=== PATIENT | female | born 1985 | race Caucasian/White ===

== ENCOUNTER 2016-10-11 23:47 | Emergency (ER) | payer BC ==
[~2016-10-11] VITALS: Ht 167.6 cm; Wt 57.5 kg
[2016-10-12 00:07] VITALS: Ht 167.6 cm; Wt 57.5 kg
[2016-10-12] MEDS ORDERED: morphine 4 MG/ML VIAL IV STA ×2 (00:28→01:53)
[2016-10-12] MEDS ORDERED: ONDANSETRON 4 MG INJ IV STA ×2 (00:28→01:53)
[2016-10-12] MEDS ORDERED: SOD CHLORIDE 0.9% 1,000 ML IV STA (00:28)
[2016-10-12 01:41] LABS: ADD SCAN DIFF NO
[2016-10-12 01:49] LABS: ADD UMIC YES; UR BILIRUBIN (Dip) NEGATIVE (NEGATIVE); UR BLOOD (Dip) 2+ (NEGATIVE); UR CLARITY CLEAR (CLEAR); UR COLOR LT. YELLOW (YELLOW); UR GLUCOSE (Dip) NEGATIVE (NEGATIVE); UR KETONES (Dip) NEGATIVE (NEGATIVE); UR LEUKOCYTE ESTERASE (Dip) NEGATIVE (NEGATIVE); UR NITRITE (Dip) NEGATIVE (NEGATIVE); UR TOTAL PROTEIN (Dip) NEGATIVE (NEGATIVE); UR UROBILINOGEN (Dip) 0.2 E.U./dL (0.1-1.0)
--- NOTE | 2016-10-12 01:50 | RADRPT ---
PROCEDURE: CT Abdomen and pelvis without contrast. CLINICAL INDICATION: Abdominal pain. TECHNIQUE: CT scan of the abdomen and pelvis was performed on a multi-detector high-resolution CT scanner. Contiguous axial images were obtained from the lung bases to the ischial tuberosities wit hout intravenous contrast. Coronal and sagittal reformatted images were also obtained. Images were reviewed on the PACS workstation. One or more of the following dose reduction techniques were used: - Automated exposure control. - Adjustment of the mA and/or kV according to patient size. - Use of iterative reconstruction technique. Exam CTD/vol = 6.83 mGy. Total exam DLP = 397.61 mGy-cm. COMPARISON: None. FINDINGS: Evaluation of the lung bases demonstrates no pleural or parenchymal disease. Abdomen: The liver is normal in size. There is no focal mass or dilatation of the biliary tree. T he gallbladder is not distended. The spleen, pancreas and bilateral adrenal glands are within yesika l limits. Bilateral kidneys are normal in size with no contour deforming mass identified. There is no radiopaque renal calculus identified. There is moderate right-sided hydronephrosis. There is n o retroperitoneal adenopathy. The abdominal aorta is of normal caliber. There is no abnormal bowel wall thickening or distension. There is no bowel obstruction or free air . A normal appendix is identified. There is no diverticulosis or diverticulitis. There is no asci jennifer. Pelvis: The bladder is unremarkable. The uterus and adnexa are within normal limits. There is a 3 mm calculus at the right ureterovesicular junction. There is no significant pelvic adenopathy or f ree fluid. Evaluation of the osseous structures demonstrates no suspicious lytic or blastic lesion. IMPRESSION: Right ureterovesicular junction 3 mm calculus with moderate right-sided hydronephrosis. .Jenaro Fairchild MD, MD Date Time Electronically viewed and signed by .Jenaro Fairchild MD, MD on 10/12/2016 01:50 .T/
[2016-10-12] MEDS ORDERED: KETOROLAC 30 MG INJ IV STA (01:54)
--- NOTE | 2016-10-12 01:57 | ERD ---
ER Documentation Chief Complaint Date/Time DATE: 10/12/16 TIME: 01:55 Chief Complaint right lower abd pain x 1 hour HPI Otherwise healthy 31-year-old female presents emergency department complaining of sudden onset right lower abdominal and right flank pain which occurred 1 hour prior to arrival to the emergency department. Patient notes associated nausea and vomiting. Patient currently rates her pain at a sharp 7 out of 10. She attempted to treat her symptoms with Motrin at home with only mild relief. She also notes associated fever and chills since the onset. She denies any headache, diarrhea, cough, chest pain, or shortness of breath. She notes 2 prior C-sections. ROS All systems reviewed and are negative except as per history of present illness. Medications Home Meds Active Scripts Ondansetron (Ondansetron Odt) 4 Mg Tab.rapdis, 4 MG PO Q6H Y for NAUSEA AND/OR VOMITING, #20 TAB Prov:ARTI KHOURY PA-C 10/12/16 Hydrocodone/Acetaminophen ([place] 5-325 Tablet) 1 Each Tablet, 1 TAB PO Q6H Y for PAIN, #14 TAB Prov:ARTI KHOURY PA-C 10/12/16 Naproxen* (Naprosyn*) 500 Mg Tablet, 500 MG PO BID Y for PAIN AND/OR INFLAMMATION, #30 TAB Prov:ARTI KHOURY PA-C 10/12/16 Tamsulosin Hcl* (Flomax*) 0.4 Mg Cap.er.24h, 0.4 MG PO BID, #30 CAP Prov:ARTI KHOURY PA-C 10/12/16 Allergies Allergies: Coded Allergies: No Known Drug Allergies (Verified Allergy, Unknown, 10/12/16) PMhx/Soc Medical and Surgical Hx: pt denies Medical Hx, pt denies Surgical Hx History of Surgery: No Anesthesia Reaction: No Hx Neurological Disorder: No Hx Respiratory Disorders: No Hx Cardiac Disorders: No Hx Psychiatric Problems: No Hx Miscellaneous Medical Probl: No Hx Alcohol Use: No Hx Substance Use: No Hx Tobacco Use: No Smoking Status: Never smoker Physical Exam Vitals Vital Signs Date Time Temp Pulse Resp B/P Pulse Ox O2 Delivery O2 Flow Rate FiO2 10/12/16 02:58 97.7 75 116/58 100 Room Air 10/12/16 00:07 98.3 95 20 99 Physical Exam Const: Well-developed, well-nourished, in moderate distress. Head: Atraumatic Eyes: Normal Conjunctiva ENT: Normal External Ears, Nose and Mouth. Neck: Full range of motion..~ No meningismus. Resp: Clear to auscultation bilaterally Cardio: Regular rate and rhythm, no murmurs Abd: Soft, tenderness to palpation of the right lower quadrant, mild rebound tenderness, no peritoneal signs non distended. Normal bowel sounds Skin: No petechiae or rashes Back: Right-sided flank tenderness, no midline Ext: No cyanosis, or edema Neur: Awake and alert Psych: Normal Mood and Affect Result Diagram: 10/12/16 0125 10/12/16 0125 Results 24 hrs Laboratory Tests Test 10/12/16 01:05 10/12/16 01:25 Urine Color LT. YELLOW Urine Clarity CLEAR Urine pH 8.5 Urine Specific [place] 1.015 Urine Ketones NEGATIVE Urine Nitrite NEGATIVE Urine Bilirubin NEGATIVE Urine Urobilinogen 0.2 E.U./dL Urine Leukocyte Esterase NEGATIVE Urine Microscopic RBC 25-50/HPF Urine Microscopic WBC 0-2/HPF Urine Squamous Epithelial Cells FEW Urine Hemoglobin 2+ Urine Glucose NEGATIVE% Urine Total Protein NEGATIVE White Blood Count 9.110^3/ul Red Blood Count 4.5810^6/ul Hemoglobin 13.2g/dl Hematocrit 38.2% Mean Corpuscular Volume 83.4fl Mean Corpuscular Hemoglobin 28.8pg Mean Corpuscular Hemoglobin Concent 34.6g/dl Red Cell Distribution Width 12.6% Platelet Count 73257^3/UL Mean Platelet Volume 10.7fl Neutrophils % 64.1% Lymphocytes % 25.5% Monocytes % 7.3% Eosinophils % 2.5% Basophils % 0.4% Nucleated Red Blood Cells % 0.0/100WBC Neutrophils # 5.810^3/ul Lymphocytes # 2.310^3/ul Monocytes # 0.710^3/ul Eosinophils # 0.210^3/ul Basophils # 0.010^3/ul Nucleated Red Blood Cells # 0.010^3/ul Sodium Level 143mmol/L Potassium Level 3.6mmol/L Chloride Level 104mmol/L Carbon Dioxide Level 24mmol/L Anion Gap 19 Blood Urea Nitrogen 16mg/dl Creatinine 0.79mg/dl Glucose Level 115mg/dl Calcium Level 10.1mg/dl Total Bilirubin 0.3mg/dl Direct Bilirubin 0.00mg/dl Indirect Bilirubin 0.3mg/dl Aspartate Amino Transf (AST/SGOT) 20IU/L Alanine Aminotransferase (ALT/SGPT) 26IU/L Alkaline Phosphatase 86IU/L Total Protein 7.8g/dl Albumin 5.0g/dl Globulin 2.80g/dl Albumin/Globulin Ratio 1.78 Lipase 170U/L Serum HCG, Qualitative NEGATIVE Current Medications Medications (Trade) Dose Ordered Sig/Chang Route PRN Reason Start Time Stop Time Status Last Admin Dose Admin Sodium Chloride (NS) 1,000 ml @ 1,000 mls/hr Q1H STAT IV 10/12/16 00:28 10/12/16 01:27 DC 10/12/16 01:37 Morphine Sulfate (morphine) 4 mg ONCE STAT IV 10/12/16 00:28 10/12/16 00:32 DC 10/12/16 01:38 Ondansetron HCl (Zofran Inj) 4 mg ONCE STAT IV 10/12/16 00:28 10/12/16 00:32 DC 10/12/16 01:37 Morphine Sulfate (morphine) 4 mg ONCE STAT IV 10/12/16 01:53 10/12/16 01:54 DC 10/12/16 02:13 Ondansetron HCl (Zofran Inj) 4 mg ONCE STAT IV 10/12/16 01:53 10/12/16 01:54 DC 10/12/16 02:13 Ketorolac Tromethamine (Toradol) 30 mg ONCE STAT IV 10/12/16 01:54 10/12/16 01:55 DC 10/12/16 02:14 Procedures/MDM PROCEDURE: CT Abdomen and pelvis without contrast. CLINICAL INDICATION: Abdominal pain. TECHNIQUE: CT scan of the abdomen and pelvis was performed on a multi- detector high-resolution CT scanner. Contiguous axial images were obtained from the lung bases to the ischial tuberosities without intravenous contrast. Coronal and sagittal reformatted images were also obtained. Images were reviewed on the PACS workstation. One or more of the following dose reduction techniques were used: - Automated exposure control. - Adjustment of the mA and/or kV according to patient size. - Use of iterative reconstruction technique. Exam CTD/vol = 6.83 mGy. Total exam DLP = 397.61 mGy-cm. COMPARISON: None. FINDINGS: Evaluation of the lung bases demonstrates no pleural or parenchymal disease. Abdomen: The liver is normal in size. There is no focal mass or dilatation of the biliary tree. The gallbladder is not distended. The spleen, pancreas and bilateral adrenal glands are within normal limits. Bilateral kidneys are normal in size with no contour deforming mass identified. There is no radiopaque renal calculus identified. There is moderate right-sided hydronephrosis. There is no retroperitoneal adenopathy. The abdominal aorta is of normal caliber. There is no abnormal bowel wall thickening or distension. There is no bowel obstruction or free air. A normal appendix is identified. There is no diverticulosis or diverticulitis. There is no ascites. Pelvis: The bladder is unremarkable. The uterus and adnexa are within normal limits. There is a 3 mm calculus at the right ureterovesicular junction. There is no significant pelvic adenopathy or free fluid. Evaluation of the osseous structures demonstrates no suspicious lytic or blastic lesion. IMPRESSION: Right ureterovesicular junction 3 mm calculus with moderate right-sided hydronephrosis. .Jenaro Fairchild MD, MD Date Time Electronically viewed and signed by .Jenaro Fairchild MD, on 10/12/2016 01:50 .T/ CC: ARTI KHOURY PA-C This is a an otherwise healthy 31-year-old female who presents with sudden onset sharp right sided abdominal and flank pain 1 hour. Vital signs were reviewed. Patient is afebrile. Patient is not hypoxic. Abdominal exam with right lower quadrant and right flank tenderness to palpation. CBC showed no evidence of systemic infection or severe anemia. CMP showed no evidence of electrolyte abnormalities, severe acidosis, alkalosis , renal failure, or liver disease. Lipase showed no evidence of acute pancreatitis. UA showed 2+ hemoglobin but no evidence of acute bacteremia, or nitrites Urine test was negative. Abdominal CT with evidence of a right ureterovesicular junction 3 mm calculus with moderate right-sided hydronephrosis. No evidence of acute appendicitis. Patient received fluids, Toradol, and morphine while in the emergency department and reports improvement of symptoms. At this time low suspicion for acute cholecystitis, pancreatitis, appendicitis, tubo-ovarian abscess, ectopic . Patient will be discharged home with pain medication and Flomax. Based on patient's history of present illness and physical examination the decision was made to discharge. The patient was re-evaluated after ED treatment and stabilizing measures, and symptoms have improved. There is no evidence of life threatening injuries or illnesses at this time. On re-examination, patient resting in no distress, stable vital signs, reports feeling better and safe for discharge with outpatient follow up with PMD in 1-2 days. Patient given return precautions. Departure Diagnosis: Primary Impression: Abdominal pain Abdominal location: right lower quadrant Qualified Code: R10.31 - Right lower quadrant abdominal pain Additional Impressions: Renal calculi Nausea & vomiting Vomiting type: unspecified Vomiting Intractability: unspecified Qualified Code: R11.2 - Nausea and vomiting, intractability of vomiting not specified, unspecified vomiting type ARTI KHOURY PA-C Oct 12, 2016 01:57
[2016-10-12 02:01] LABS: UR SQUAMOUS EPITHELIAL CELL FEW; URINE RBCS 25-50 /HPF (0)
[2016-10-12 02:03] LABS: ALBUMIN/GLOBULIN RATIO 1.78; BILIRUBIN,INDIRECT 0.3 mg/dl (0-1.1); BILIRUBIN,TOTAL 0.3 mg/dl (0.2-1.3); CALCIUM 10.1 mg/dl (8.4-10.2); CREATININE 0.79 mg/dl (0.44-1.00); POTASSIUM 3.6 mmol/L (3.5-5.1); TOTAL PROTEIN 7.8 g/dl (6.1-8.1)
[2016-10-12 02:33] LABS: BASOPHILS % 0.4 % (0.0-2.0); EOSINOPHILS # 0.2 10^3/ul (0.0-0.5); EOSINOPHILS % 2.5 % (0.0-7.0); HEMATOCRIT 38.2 % (37.0-47.0); HEMOGLOBIN 13.2 g/dl (12.0-16.0); LYMPHOCYTES # 2.3 10^3/ul (0.8-2.9); LYMPHOCYTES % 25.5 % (15.0-51.0); MEAN CORPUSCULAR HEMOGLOBIN 28.8 pg (29.0-33.0); MEAN CORPUSCULAR HGB CONC 34.6 g/dl (32.0-37.0); MEAN CORPUSCULAR VOLUME 83.4 fl (82.0-101.0); MEAN PLATELET VOLUME 10.7 fl (7.4-10.4); MONOCYTE # 0.7 10^3/ul (0.3-0.9); MONOCYTES % 7.3 % (0.0-11.0); NEUTROPHIL # 5.8 10^3/ul (1.6-7.5); NEUTROPHILS % 64.1 % (39.0-77.0); PLATELET COUNT 324 10^3/UL (140-415); RED BLOOD COUNT 4.58 10^6/ul (4.20-5.40); RED CELL DISTRIBUTION WIDTH 12.6 % (11.5-14.5); WHITE BLOOD COUNT 9.1 10^3/ul (4.8-10.8)
[2016-10-12] MEDS ORDERED: TAMS-14 PO (02:46)
[2016-10-12] MEDS ORDERED: ONDA4TAB14 PO (02:46)
[2016-10-12] MEDS ORDERED: HYDR-906 PO (02:46)
[2016-10-12] MEDS ORDERED: NAPR-260 PO (02:46)
[2016-10-12 02:58] VITALS: BP 116/58; PULSE 75; TEMP 97.7
== END 2016-10-12 03:10 | disposition home or self-care (01) ==
LOC: FTE 23:47
DX: R10.31 Right lower quadrant pain (principal); N20.0 Calculus of kidney; R11.2 Nausea with vomiting, unspecified
CPT/HCPCS: 74176; 80053; 81001; 83690; 84703; 85025; J1885; J2270; J2405; J7030; 36415; 96374; 96375; 96376